=== PATIENT | female | born 1995 | race Caucasian/White ===

== ENCOUNTER 2017-03-13 18:43 | Emergency (ER) | payer OTHER ==
[~2017-03-13] VITALS: Ht 160 cm; Wt 60.8 kg
[2017-03-13] MEDS ORDERED: MOTRIN800 MG PO (22:43)
[2017-03-13] MEDS ORDERED: FLEXERIL10 MG PO (22:43)
[2017-03-13 23:40] VITALS: BP 146/99
== END 2017-03-13 23:44 | disposition home or self-care (01) ==
LOC: EME 18:43
DX: S16.1XXA Strain of muscle, fascia and tendon at neck level, initial encounter (principal); V44.5XXA Car driver injured in collision with heavy transport vehicle or bus in traffic accident, initial encounter; Y92.411 Interstate highway as the place of occurrence of the external cause; G43.909 Migraine, unspecified, not intractable, without status migrainosus; Z79.3 Long term (current) use of hormonal contraceptives; Z88.0 Allergy status to penicillin
CPT/HCPCS: 72040; 99281; 99284